=== PATIENT | male | born 1980 | race Hispanic/Latino ===

== ENCOUNTER 2024-06-20 11:09 | Emergency (ER) | payer OTHER ==
[~2024-06-20] VITALS: Ht 170.2 cm; Wt 81.6 kg
[2024-06-20] VITALS (9 sets, daily range): BP systolic 119–138; BP diastolic 76–96
[2024-06-20] MEDS ORDERED: CEPHALEXIN MONOHYDRATE 500 MG/CAP PO ONE (11:20)
[2024-06-20] MEDS ORDERED: oxyCODONE 5MG/ ACETAMINOPHEN 325MG TAB PO ONE (11:20)
[2024-06-20] MEDS ORDERED: LIDOcaine HCl 1% (Local Anesth.) 20 ML VIAL STI ONE (11:20)
[2024-06-20] MEDS ORDERED: SODIUM CHLORIDE 500 ML BTL IR ONE (12:40)
== END 2024-06-20 13:18 | DRG 563 ==
LOC: ED 11:09
PROC: 0HQFXZZ Repair Right Hand Skin, External Approach (ICD-10-PCS; principal; 2024-06-20)
DX: S62.626B Displaced fracture of middle phalanx of right little finger, initial encounter for open fracture (principal); W23.0XXA Caught, crushed, jammed, or pinched between moving objects, initial encounter; Y99.0 Civilian activity done for income or pay